=== PATIENT | female | born 1970 | race Hispanic/Latino ===

== ENCOUNTER → 2018-06-17 | Outpatient (CLI) | payer OTHER | END | disposition home or self-care (01) | LOC: OIH 05-21 11:41 | PROVIDERS: ATTEND Internal Medicine | DX: M19.032 Primary osteoarthritis, left wrist (principal); M06.4 Inflammatory polyarthropathy | CPT/HCPCS: 73100; 73120; 73620 ==

== ENCOUNTER 2024-10-01 22:33 | Emergency (ER) | payer OTHER ==
[~2024-10-01] VITALS: Ht 157.5 cm; Wt 59.0 kg
[2024-10-01 22:56] LABS: APPEARANCE,URINE CLEAR (CLEAR); BILIRUBIN,URINE NEGATIVE (NEGATIVE); COLOR,URINE LIGHT-YELLOW (YELLOW); GLUCOSE, URINE (UA) NEGATIVE (NEGATIVE); KETONES,URINE NEGATIVE (NEGATIVE); LEUKOCYTE ESTERASE ,URINE NEGATIVE Leu/uL (NEGATIVE); NITRATE,URINE NEGATIVE (NEGATIVE); OCCULT BLOOD,URINE NEGATIVE (NEGATIVE); PH,URINE 7.5 (5.0-8.0); PROTEIN,URINE NEGATIVE (NEGATIVE); UROBILINOGEN,URINE 0.2 mg/dL (0.2-1.0)
[2024-10-01 23:02] LABS: ADD UA MICROSCOPIC NO
--- NOTE | 2024-10-01 23:26 | ERN ---
CONSULTATION NOTE DATE OF ER CONSULTATION: DATE: 10/01/24 REASON FOR CONSULTATION: This note was opened by mistake and I can not close it. Or delete it not sure why please see my other note from today which is more complete. HISTORY OF PRESENT ILLNESS: Headache PAST MEDICAL HISTORY: None ALLERGIES: Coded Allergies: No Known Drug Allergies (Unverified Allergy, Unknown, 10/01/24) VITAL SIGNS Vital Signs Date Time Temp Pulse Resp B/P (MAP) Pulse Ox O2 Delivery O2 Flow Rate FiO2 10/01/24 22:35 98.4 82 18 118/78 99 Room Air 0 LABORATORY RESULTS Laboratory Tests 10/01/24 22:45: Urine Color LIGHT-YELLOW, Urine Appearance CLEAR, Urine pH 7.5, Urine Specific [place] 1.014, Urine Protein NEGATIVE, Urine Glucose (UA) NEGATIVE, Urine Ketones NEGATIVE, Urine Occult Blood NEGATIVE, Urine Nitrate NEGATIVE, Urine Bilirubin NEGATIVE, Urine Urobilinogen 0.2, Urine Leukocyte Esterase NEGATIVE DENIS HANKINS MD Oct 01, 2024 23:26
[2024-10-01] MEDS ORDERED: TRIAMCINOLONE ACETONIDE 40 MG/ML 1ML VIAL SQ ONE (23:30)
[2024-10-01] MEDS: ketOROlac 30MG VIAL (30MG/ML) IVP ONE (23:33)
[2024-10-01] MEDS: ORPHENADRINE 60MG/2ML IM ONE (23:33)
[2024-10-01] MEDS: CYCLOBENZAPRINE HCL 10 MG TABLET PO ONE (23:34)
[2024-10-01] MEDS: LACTATED RINGERS 1000ML IV STA (23:34)
[2024-10-01] MEDS: TRIAMCINOLONE ACETONIDE 40 MG/ML 1ML VIAL IM ONE (23:34)
[2024-10-01] MEDS: ondanSETRON 4MG TABLET PO ONE (23:34)
--- NOTE | 2024-10-01 23:38 | ERN ---
General Chief Complaint: Back Pain-No Injury Stated Complaint: BACK PAIN Time Seen by MD: 23:07 Source: patient History of Present Illness Initial Comments Patient is a 54-year-old female who started to have nausea and vomiting this morning it has gotten progressively worse and now she experiences pain in the middle of her back. Timing/Duration: 4-6 hours Allergies: Coded Allergies: No Known Drug Allergies (Unverified Allergy, Unknown, 10/01/24) Past Medical History Past Medical History: Asthma, Diabetes-Type II, High Cholesterol, Hypertension, Other Medical History Other: RA, Past Surgical History: Cholecystectomy, Other, Surgical History Other: RIGHT AND LEFT SHOULDER SX, LEFT HIP SX. Constitutional: (-) chills, (-) diaphoresis, (-) fever, (-) malaise, (-) weakness, (-) other documentation EENTM: (-) eye pain, (-) blurred vision, (-) tearing, (-) double vision, (-) ear pain, (-) ear discharge, (-) nose pain, (-) nose congestion, (-) throat pain, (-) Throat swelling, (-) mouth pain, (-) tooth pain, (-) mouth swelling, (-) other documentation Respiratory: (-) cough, (-) orthopnea, (-) short of breath, (-) stridor, (-) wheezing, (-) other documentation Cardiovascular: (-) chest pain, (-) edema, (-) palpitations, (-) syncope, (-) dyspnea on exertion, (-) other documentation Gastrointestinal/Abdominal: (+) nausea, (+) vomiting Genitourinary: (-) vaginal discharge, (-) vaginal bleeding, (-) dysuria, (-) frequency, (-) hematuria, (-) pain, (-) other documentation Musculoskeletal: (+) back pain, (+) Flank Pain Skin: (-) laceration, (-) contusion, (-) abrasion, (-) abscess, (-) rash, (-) change in color, (-) change in hair, (-) change in nails, (-) diaphoresis, (-) dryness, (-) other documentation Neuro: (+) headache; (-) altered mental status, (-) syncope, (-) paralysis, (-) numbness, (-) seizure, (-) pre-existing deficit, (-) tremors, (-) weakness, (-) dizziness, (-) slurred speech, (-) vertigo, (-) other documentation Physical Exam General Appearance: (+) moderate distress General Appearance comment Patient is sitting in the hospital bed in her room with the lights turned off because of photophobia. Orientation: (+) oriented x 3 Head/Face Trauma: No Ear, Nose, Throat: (+) hearing grossly normal, (+) normal ENT inspection, (+) moist mucous membraine Neck: (+) normal inspection, (+) supple, (+) full range of motion, (+) no JVD, (+) tender Respiratory: (+) chest non-tender, (+) lungs clear Respiratory Comment Patient has costovertebral angle pain and tenderness. Heart: (+) regular, (+) no gallop Vascular: (+) no edema Gastrointestinal: (+) soft, (+) non-tender, (+) bowel sound present Results Laboratory and Microbiology Lab and Micro Result Laboratory Tests Test 10/01/24 22:45 10/02/24 00:26 Urine Color LIGHT-YELLOW (YELLOW) Urine Appearance CLEAR (CLEAR) Urine pH 7.5 (5.0-8.0) Urine Specific [place] 1.014 (1.001-1.031) Urine Protein NEGATIVE mg/dL (NEGATIVE) Urine Glucose (UA) NEGATIVE mg/dL (NEGATIVE) Urine Ketones NEGATIVE mg/dL (NEGATIVE) Urine Occult Blood NEGATIVE (NEGATIVE) Urine Nitrate NEGATIVE (NEGATIVE) Urine Bilirubin NEGATIVE mg/dL (NEGATIVE) Urine Urobilinogen 0.2 mg/dL (0.2-1.0) Urine Leukocyte Esterase NEGATIVE Salima/uL White Blood Count 8.0 K/uL (4.8-10.8) Red Blood Count 4.01 MIL/uL (4.00-5.50) Hemoglobin 11.2 g/dL (12.0-16.0) L Hematocrit 34.1 % (36-48) L Mean Corpuscular Volume 85.0 fL (79-99) Mean Corpuscular Hemoglobin 27.9 pg (27.0-33.0) Mean Corpuscular Hemoglobin Concent 32.8 g/dL (32.0-36.0) Red Cell Distribution Width 13.8 % (11.0-15.5) Platelet Count 161 K/uL (130-400) Mean Platelet Volume 9.9 fL (7.5-10.5) Immature Granulocyte % (Auto) 0.4 % (0-1) Neutrophils (%) (Auto) 78.6 % (40.0-77.0) H Lymphocytes (%) (Auto) 13.0 % (21.0-51.0) L Monocytes (%) (Auto) 6.4 % (3.0-13.0) Eosinophils (%) (Auto) 1.1 % (0.0-8.0) Basophils (%) (Auto) 0.5 % (0.0-5.0) Neutrophils # (Auto) 6.3 K/uL (1.8-7.7) Lymphocytes # (Auto) 1.0 K/uL (1.0-4.8) Monocytes # (Auto) 0.5 K/uL (0.1-1.0) Eosinophils # (Auto) 0.09 K/uL (0.00-0.70) Basophils # (Auto) 0.04 K/uL (0.00-0.20) Absolute Immature Granulocyte (auto 0.03 K/uL (0-1) Nucleated Red Blood Cells 0.0 % (0.0-0.19) Sodium Level 138 mmol/L (136-145) Potassium Level 4.0 mmol/L (3.5-5.1) Chloride Level 102 mmol/L (101-111) Carbon Dioxide Level 33 mmol/L (21-32) H Blood Urea Nitrogen 13 mg/dL (7-18) Creatinine 0.6 mg/dL (0.5-1.0) Glomerular Filtration Rate Calc 107 mL/min (>90) Random Glucose 105 mg/dL (70-105) Total Calcium 8.8 mg/dL (8.5-10.1) Procalcitonin < 0.05 ng/mL (0.05-0.5) L MDM Patient with nausea vomiting and emesis. And the pain has now migrated up to her back. With CVA tenderness. Seems like patient may have a urinary tract infection or pyelonephritis. When I mentioned this to her she is sedated that she has had kidney stones in the past but this does not feel like it. The back pain could be musculoskeletal from the emesis. A UA has already been ordered and it is negative. I will get a CBC chemistry panel. I will give her fluids Toradol and Flexeril. We can also do an injection of Kenalog and nor flex in her back. Patient feels much better with the medications and fluids that I gave her. I ordered a CT scan with the and without contrast of her abdomen and pelvis to see if she had a kidney stone. Due to lack of a urine test and many other radiographic studies the patient has spent the last 2 hours waiting for the CT scan. I discussed the lab results with her and she feels comfortable going home without the CT scan. I have canceled the CT scan. Patient's urinalysis chemistry panel and CBC are all normal. ED Course Orders Procedure Category Date Status Time Urinalysis Profile LAB 10/01/24 Complete 22:41 Triamcinolone Acet PHA 10/01/24 Complete 40mg/Ml 1ml (Kenalog 23:30 Orphenadrine Citrate PHA 10/01/24 Complete (Norflex) 23:30 Ondansetron 4mg PHA 10/01/24 Complete Tablet (Zofran 4mg 23:30 Cyclobenzaprine Hcl PHA 10/01/24 Complete (Cyclobenzaprine Hcl 23:30 Ketorolac PHA 10/01/24 Complete Tromethamine 30mg/Ml 23:30 Lactated Ringers PHA 10/01/24 Complete 1000ml (Lactated 23:20 Triamcinolone Acet PHA 10/01/24 Complete 40mg/Ml 1ml (Kenalog 23:30 Cbc With Differential LAB 10/01/24 Complete 23:59 Basic Metabolic Panel LAB 10/01/24 Complete 23:59 Procalcitonin LAB 10/01/24 Complete 23:59 ,Urine Test LAB 10/02/24 Logged 02:21 Current Medications Medications (Trade) Dose Ordered Sig/Alda Route PRN Reason Start Time Stop Time Status Last Admin Dose Admin Cyclobenzaprine HCl (Cyclobenzaprine HCl) 10 mg ONCE ONCE PO 10/01/24 23:30 10/01/24 23:53 DC 10/01/24 23:34 Ketorolac Tromethamine (toRADol) 30 mg ONCE ONCE IVP 10/01/24 23:30 10/01/24 23:53 DC 10/01/24 23:33 Lactated Ringer's (Lactated Ringers 1000ml) 1,000 ml BOLUS STAT IV 10/01/24 23:20 10/01/24 23:53 DC 10/01/24 23:34 Ondansetron HCl (zoFRAN 4MG TABLET) 4 mg ONCE ONCE PO 10/01/24 23:30 10/01/24 23:54 DC 10/01/24 23:34 Orphenadrine Citrate (Norflex) 60 mg ONCE ONCE IM 10/01/24 23:30 10/01/24 23:54 DC 10/01/24 23:33 Triamcinolone Acetonide (Kenalog 40) 40 mg ONCE ONCE IM 10/01/24 23:30 10/01/24 23:53 DC 10/01/24 23:34 Triamcinolone Acetonide (Kenalog 40) 40 mg ONCE ONCE SQ 10/01/24 23:30 10/01/24 23:27 DC Vital Signs Date Time Temp Pulse Resp B/P (MAP) Pulse Ox O2 Delivery O2 Flow Rate FiO2 10/01/24 22:35 98.4 82 18 118/78 99 Room Air 0 DX & DISP Disposition: Discharge Departure Impression: Primary Impression: Back pain Additional Impression: Dehydration Condition: Stable Additional Instructions: I am not a 100% sure of the cause of your pain. It could be from the overexert ion from the nausea and vomiting associated with dehydration. Please stay well hydrated drink enough fluids so that your urine runs clear at least once a day. Please return if you do have signs or symptoms of renal colic urinary tract infection or unremitting emesis. Referrals: LAILA LILLY MD (PCP) DENIS HANKINS MD Oct 01, 2024 23:38
[2024-10-02 00:42] LABS: CREATININE 0.6 mg/dL (0.5-1.0)
[2024-10-02 00:44] LABS: BASOPHILS # (AUTO) 0.04 K/uL (0.00-0.20); BASOPHILS % (AUTO) 0.5 % (0.0-5.0); EOSINOPHILS # (AUTO) 0.09 K/uL (0.00-0.70); EOSINOPHILS % (AUTO) 1.1 % (0.0-8.0); HEMATOCRIT 34.1 % (36-48); IMMATURE GRANULOCYTE ABSOLUTE 0.03 K/uL (0-1); MEAN CORPUSCULAR HEMOGLOBIN 27.9 pg (27.0-33.0); MEAN CORPUSCULAR HGB CONC 32.8 g/dL (32.0-36.0); MONOCYTES # (AUTO) 0.5 K/uL (0.1-1.0); MONOCYTES % (AUTO) 6.4 % (3.0-13.0); NEUTROPHILS # (AUTO) 6.3 K/uL (1.8-7.7); NEUTROPHILS % (AUTO) 78.6 % (40.0-77.0); PLATELET COUNT (AUTO) 161 K/uL (130-400); RED BLOOD CELL COUNT(AUTO) 4.01 MIL/uL (4.00-5.50); RED CELL DISTRIBUTION WIDTH 13.8 % (11.0-15.5)
[2024-10-02 02:45] VITALS: BP 120/74; PULSE 78; RESP 18; TEMP 98.4; O2SAT 99
== END 2024-10-02 02:51 | disposition home or self-care (01) ==
LOC: EDH 22:33
DX: M54.50 Low back pain, unspecified (principal); E86.0 Dehydration; E11.9 Type 2 diabetes mellitus without complications; E78.00 Pure hypercholesterolemia, unspecified; I10 Essential (primary) hypertension; J45.909 Unspecified asthma, uncomplicated; Z90.49 Acquired absence of other specified parts of digestive tract
CPT/HCPCS: 99283; 96374; 96372 ×2; 80048; 85025; 81003; 81025; 36415; 84145; Q0162; J1885; J7120; J3301; J2360